=== PATIENT | female | born 1960 | race Caucasian/White ===

== ENCOUNTER → 2016-08-24 | Outpatient (CLI) | payer BC, OTHER ==
--- NOTE | 2016-08-24 15:45 | CR ---
EXAMINATION: Left knee HISTORY: Osteoarthritis COMPARISON: 09/12/2014 TECHNIQUE: 4 views FINDINGS/IMPRESSION: There is moderate severe joint space narrowing within the medial compartment wi th mild osteophyte formation. No fracture or acute osseous abnormality is noted. Bone mineralization appears normal, there is likely a trace joint effusion.
== END ==
LOC: MW.CHORTHO 10:53
PROVIDERS: ATTEND Orthopaedic Surgery
DX: M17.12 Unilateral primary osteoarthritis, left knee (principal); M25.862 Other specified joint disorders, left knee; M25.762 Osteophyte, left knee
CPT/HCPCS: 73564-26-LT; 73564-LT

== ENCOUNTER 2017-07-27 05:05 | Emergency (ER) | payer BC, OTHER ==
--- NOTE | 2017-07-27 05:52 | EDM.PDOC ---
ED HPI GENERAL MEDICAL PROBLEM - General Chief Complaint: Abdominal Pain Stated Complaint: BLOOD IN URINE Time Seen by Provider: 07/27/17 05:50 - History of Present Illness INITIAL COMMENTS - FREE TEXT/NARRATIVE: HISTORY AND PHYSICAL: History of present illness: Patient's a 56-year-old white female presents with concern of discomfort with urination and frequency she denies fever chills nausea vomiting or other complaints Review of systems: As per history of present illness and below otherwise all systems reviewed and negative. Past medical history: As per history of present illness and as reviewed below otherwise noncontributory. Surgical history: As per history of present illness and as reviewed below otherwise noncontributory. Social history: No reported history of drug or alcohol abuse. Family history: As per history of present illness and as reviewed below otherwise noncontributory. Physical exam: HEENT: Atraumatic, normocephalic, pupils reactive, negative for conjunctival pallor or scleral icterus, mucous membranes moist, throat clear, neck supple, nontender, trachea midline. Lungs: Clear to auscultation, breath sounds equal bilaterally, chest nontender. Heart: S1S2, regular, negative for clicks, rubs, or JVD. Abdomen: Soft, nondistended, nontender. Negative for masses or hepatosplenomegaly. Negative for costovertebral tenderness. Pelvis: Stable nontender. Genitourinary: Deferred. Rectal: Deferred. Extremities: Atraumatic, negative for cords or calf pain. Neurovascular unremarkable. Neuro: Awake, alert, oriented. Cranial nerves II through XII unremarkable. Cerebellum unremarkable. Motor and sensory unremarkable throughout. Exam nonfocal. Diagnostics: UA urine C&S Therapeutics: None Impression: 1 urinary tract infection Definitive disposition and diagnosis as appropriate pending reevaluation and review of above. abdominal Pain Score (Numeric/FACES): 2 - Related Data Allergies Allergy/AdvReac Type Severity Reaction Status Date / Time No Known Allergies Allergy Verified 07/27/17 05:20 Home Meds: Home Meds Albuterol [Proair HFA] 2 puff INH Q4HR PRN 09/23/13 [History] Ascorbate Calcium [Vitamin C] 1 tab PO DAILY 09/16/14 [History] MV,Ca,Min/Iron Fum/FA/Vit K [Multi For Her Tablet] 1 tab PO DAILY 09/16/14 [ History] Naproxen 1 tab PO BID 09/16/14 [History] [place]-3 Fatty Acids/Fish Oil [Fish Oil 1,200 mg Softgel] 1 cap PO DAILY [History] Amoxicillin/Potassium Clav [Augmentin 875-125 Tablet] 1 each PO BID #14 tablet 03/19/16 [Rx] Rizatriptan Benzoate [Maxalt] 5 mg PO ASDIRECTED PRN #10 tablet 03/19/16 [Rx] Past Medical History Respiratory History: Reports: Asthma Gastrointestinal History: Reports: None 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: Musculoskeletal History: Reports: None Neurological History: Reports: Migraines Psychiatric History: Reports: Depression - Infectious Disease History Infectious Disease History: Reports: Chicken Pox - Past Surgical History GI Surgical History: Reports: Appendectomy, Cholecystectomy, Other (See Below) Other GI Surgeries/Procedures: Abdominal surgery for "tumors in my abdomen", pt states tumor is benign Female Surgical History: Reports: Hysterectomy Musculoskeletal Surgical History: Reports: Other (See Below) Other Musculoskeletal Surgeries/Procedures:: surgery to right foot Social & Family History - Family History Family Medical History: Noncontributory - Tobacco Use Smoking Status *Q: Never Smoker Second Hand Smoke Exposure: No - Caffeine Use Caffeine Use: Reports: Coffee - Alcohol Use Days Per Week of Alcohol Use: 0 Number of Drinks Per Day: 0 Total Drinks Per Week: 0 - Recreational Drug Use Recreational Drug Use: No Drug Use in Last 12 Months: No ED ROS GENERAL - Review of Systems Review Of Systems: ROS reveals no pertinent complaints other than HPI. ED EXAM, GENERAL - Physical Exam Exam: See Below (See dictation) Course - Vital Signs Last Recorded V/S: Last Vital Signs Temp 36.6 C 07/27/17 05:15 Pulse 84 07/27/17 05:15 Resp 19 07/27/17 05:15 BP 138/69 07/27/17 05:15 Pulse Ox 96 07/27/17 05:15 - Orders/Labs/Meds Labs: Laboratory Tests 07/27/17 Range/Units 05:12 Urine Color YELLOW Urine Appearance SLT CLOUDY Urine pH 5.5 (5.0-8.0) Ur Specific [place] 1.010 (1.001-1.035) Urine Protein 30 (NEGATIVE) mg/dL Urine Glucose (UA) NEGATIVE (NEGATIVE) mg/dL Urine Ketones NEGATIVE (NEGATIVE) mg/dL Urine Occult Blood LARGE H (NEGATIVE) Urine Nitrite NEGATIVE (NEGATIVE) Urine Bilirubin NEGATIVE (NEGATIVE) Urine Urobilinogen 0.2 (<2.0) EU/dL Ur Leukocyte Esterase SMALL (NEGATIVE) Urine RBC TOO NUMBER (0-2/HPF) Urine WBC 20-30 (0-5/HPF) Ur Epithelial Cells FEW (NONE-FEW) Urine Bacteria FEW (NEGATIVE) Departure - Departure Time of Disposition: 05:51 Disposition: Home, Self-Care 01 Condition: Good Clinical Impression: UTI, Urinary tract infectious disease - Discharge Information Referrals: PCP,None [Primary Care Provider] - Additional Instructions: The following information is given to patients seen in the emergency department who are being discharged to home. This information is to outline your options for follow-up care. We provide all patients seen in our emergency department with a follow-up referral. The need for follow-up, as well as the timing and circumstances, are variable depending upon the specifics of your emergency department visit. If you don't have a primary care physician on staff, we will provide you with a referral. We always advise you to contact your personal physician following an emergency department visit to inform them of the circumstance of the visit and for follow-up with them and/or the need for any referrals to a consulting specialist. The emergency department will also refer you to a specialist when appropriate. This referral assures that you have the opportunity for followup care with a specialist. All of these measure are taken in an effort to provide you with optimal care, which includes your followup. Under all circumstances we always encourage you to contact your private physician who remains a resource for coordinating your care. When calling for followup care, please make the office aware that this follow-up is from your recent emergency room visit. If for any reason you are refused follow-up, please contact the [facility] emergency department at and asked to speak to the emergency department charge nurse. Cipro Pyridium as prescribed follow-up primary medical doctor as needed as discussed return as needed as discussed
[2017-07-27 06:09] VITALS: BP 121/76
== END 2017-07-27 06:00 | disposition home or self-care (01) ==
LOC: MW.ED 05:05
DX: N39.0 Urinary tract infection, site not specified (principal); Z79.899 Other long term (current) drug therapy
CPT/HCPCS: 81001; 87086; 99282; 99283

== ENCOUNTER 2018-12-12 02:45 | Emergency (ER) | payer BC, OTHER ==
[2018-12-12] MEDS ORDERED: diphenhydrAMINE 50 MG/ML SDV IVPUSH ONE (02:58)
[2018-12-12] MEDS ORDERED: methylPREDNISolone Sodium Succinate 125 MG/2 ML SDV IVPUSH ONE (02:58)
[2018-12-12 04:54] LABS: CHLORIDE,CL 105 mmol/L (98-107); SODIUM,NA 139 mmol/L (136-145)
--- NOTE | 2018-12-12 05:06 | EDM.PDOC ---
ED HPI GENERAL MEDICAL PROBLEM - General Chief Complaint: ENT Problem Stated Complaint: THROAT SWOLLEN Time Seen by Provider: 12/12/18 05:01 - History of Present Illness INITIAL COMMENTS - FREE TEXT/NARRATIVE: HISTORY AND PHYSICAL: History of present illness: Patient's 58-year-old white female who presents with a concern of sore throat difficulty swallowing she states she had similar episodes in the past that have resolved with Benadryl. She has seen doctors for this multiple times in his yet to obtain a clear diagnosis. Review of systems: As per history of present illness and below otherwise all systems reviewed and negative. Past medical history: As per history of present illness and as reviewed below otherwise noncontributory. Surgical history: As per history of present illness and as reviewed below otherwise noncontributory. Social history: No reported history of drug or alcohol abuse. Family history: As per history of present illness and as reviewed below otherwise noncontributory. Physical exam: HEENT: Atraumatic, normocephalic, pupils reactive, negative for conjunctival pallor or scleral icterus, mucous membranes moist, throat injected without pustular exudates no peritonsillar fullness or uvular deviation no trismus or hot potato voice, neck supple, nontender, trachea midline. Lungs: Clear to auscultation, breath sounds equal bilaterally, chest nontender. Heart: S1S2, regular, negative for clicks, rubs, or JVD. Abdomen: Soft, nondistended, nontender. Negative for masses or hepatosplenomegaly. Negative for costovertebral tenderness. Pelvis: Stable nontender. Genitourinary: Deferred. Rectal: Deferred. Extremities: Atraumatic, negative for cords or calf pain. Neurovascular unremarkable. Neuro: Awake, alert, oriented. Cranial nerves II through XII unremarkable. Cerebellum unremarkable. Motor and sensory unremarkable throughout. Exam nonfocal. Diagnostics: CBC CMP rapid strep. chest x-ray CT neck refused by patient Therapeutics: Saline 1 L bolus Solu-Medrol 125 IV Benadryl 50 mg IV Impression: #1 pharyngitis #2 odynophagia rule out angioedema Definitive disposition and diagnosis as appropriate pending reevaluation and review of above. throat Pain Score (Numeric/FACES): 5 - Related Data Allergies Allergy/AdvReac Type Severity Reaction Status Date / Time No Known Allergies Allergy Verified 12/12/18 02:59 Home Meds: Home Meds . 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: Musculoskeletal History: Reports: None Neurological History: Reports: Migraines Psychiatric History: Reports: Depression Endocrine/Metabolic History: Reports: None Hematologic History: Reports: None Immunologic History: Reports: None Oncologic (Cancer) History: Reports: None Dermatologic History: Reports: None - Infectious Disease History Infectious Disease History: Reports: None - Past Surgical History GI Surgical History: Reports: Appendectomy, Cholecystectomy, Other (See Below) Other GI Surgeries/Procedures: Abdominal surgery for "tumors in my abdomen", pt states tumor is benign Female Surgical History: Reports: Hysterectomy Musculoskeletal Surgical History: Reports: Other (See Below) Other Musculoskeletal Surgeries/Procedures:: surgery to right foot Social & Family History - Family History Family Medical History: Noncontributory - Tobacco Use Smoking Status *Q: Never Smoker - Caffeine Use Caffeine Use: Reports: Coffee - Recreational Drug Use Recreational Drug Use: No ED ROS GENERAL - Review of Systems Review Of Systems: ROS reveals no pertinent complaints other than HPI. ED EXAM, GENERAL - Physical Exam Exam: See Below (See dictation) Course - Vital Signs Text/Narrative:: Patient has been was discharged home admission for observation offered also discussed risk-benefit of CT scan of her neck and chest x-ray for further evaluation patient feels improved will be discharged on Medrol to be taken as prescribed continue Benadryl follow-up with her private medical doctor return as needed as discussed Last Recorded V/S: Last Vital Signs Temp 36.4 C 12/12/18 03:00 Pulse 98 12/12/18 03:00 Resp 18 12/12/18 03:00 BP 160/97 H 12/12/18 03:00 Pulse Ox 98 12/12/18 03:00 - Orders/Labs/Meds Orders: Active Orders 24 hr Category Date Time Status Soft Tissue Neck w Cont [CT] Stat Exams 12/12/18 02:57 Ordered Labs: Laboratory Tests 12/12/18 12/12/18 Range/Units 03:05 03:05 WBC 6.54 (4.0-11.0) K/uL RBC 4.72 (4.30-5.90) M/uL Hgb 13.5 (12.0-16.0) g/dL Hct 41.1 (36.0-46.0) % MCV 87.1 (80.0-98.0) fL MCH 28.6 (27.0-32.0) pg MCHC 32.8 (31.0-37.0) g/dL RDW Std Deviation 44.5 (28.0-62.0) fl RDW Coeff of Teja 14 (11.0-15.0) % Plt Count 280 (150-400) K/uL MPV 9.70 (7.40-12.00) fL Neut % (Auto) 52.2 (48.0-80.0) % Lymph % (Auto) 32.0 (16.0-40.0) % [place] % (Auto) 10.9 (0.0-15.0) % Eos % (Auto) 4.3 (0.0-7.0) % Baso % (Auto) 0.6 (0.0-1.5) % Neut # (Auto) 3.4 (1.4-5.7) K/uL Lymph # (Auto) 2.1 (0.6-2.4) K/uL [place] # (Auto) 0.7 (0.0-0.8) K/uL Eos # (Auto) 0.3 (0.0-0.7) K/uL Baso # (Auto) 0.0 (0.0-0.1) K/uL Nucleated RBC % 0.0 /100WBC Nucleated RBCs # 0 K/uL Sodium 139 (136-145) mmol/L Potassium 3.9 (3.5-5.1) mmol/L Chloride 105 (98-107) mmol/L Carbon Dioxide 25.6 (21.0-32.0) mmol/L BUN 18 (7.0-18.0) mg/dL Creatinine 0.8 (0.6-1.0) mg/dL Est Cr Clr Drug Dosing 56.40 mL/min Estimated GFR (MDRD) > 60.0 ml/min Glucose 103 (74-106) mg/dL Calcium 9.0 (8.5-10.1) mg/dL Total Bilirubin 0.2 (0.2-1.0) mg/dL AST 13 L (15-37) IU/L ALT 25 (14-63) IU/L Alkaline Phosphatase 84 (46-116) U/L Total Protein 7.5 (6.4-8.2) g/dL Albumin 3.6 (3.4-5.0) g/dL Globulin 3.9 (2.6-4.0) g/dL Albumin/Globulin Ratio 0.9 (0.9-1.6) Meds: Medications Discontinued Medications Generic Name Dose Route Start Last Admin Trade Name Magno PRN Reason Stop Dose Admin Diphenhydramine HCl 50 mg 12/12/18 02:58 12/12/18 03:17 Benadryl IVPUSH 12/12/18 02:59 50 mg ONETIME ONE Administration Methylprednisolone Sodium Succinate 125 mg 12/12/18 02:58 12/12/18 03:14 Solu-Medrol IVPUSH 12/12/18 02:59 125 mg ONETIME ONE Administration Departure - Departure Time of Disposition: 05:05 Disposition: Home, Self-Care 01 Condition: Good Clinical Impression: Pharyngitis, Odynophagia - Discharge Information Referrals: PCP,None [Primary Care Provider] - Additional Instructions: The following information is given to patients seen in the emergency department who are being discharged to home. This information is to outline your options for follow-up care. We provide all patients seen in our emergency department with a follow-up referral. The need for follow-up, as well as the timing and circumstances, are variable depending upon the specifics of your emergency department visit. If you don't have a primary care physician on staff, we will provide you with a referral. We always advise you to contact your personal physician following an emergency department visit to inform them of the circumstance of the visit and for follow-up with them and/or the need for any referrals to a consulting specialist. The emergency department will also refer you to a specialist when appropriate. This referral assures that you have the opportunity for followup care with a specialist. All of these measure are taken in an effort to provide you with optimal care, which includes your followup. Under all circumstances we always encourage you to contact your private physician who remains a resource for coordinating your care. When calling for followup care, please make the office aware that this follow-up is from your recent emergency room visit. If for any reason you are refused follow-up, please contact the [facility] emergency department at and asked to speak to the emergency department charge nurse. Clear liquids as discussed Medrol is prescribed Benadryl as directed and return as needed as discussed follow-up primary medical doctor NEVILLE - My Orders Last 24 Hours: My Active Orders 12/12/18 02:57 Soft Tissue Neck w Cont [CT] Stat - Assessment/Plan Last 24 Hours: My Active Orders 12/12/18 02:57 Soft Tissue Neck w Cont [CT] Stat
[2018-12-12 06:02] VITALS: BP 139/99
== END 2018-12-12 06:04 | disposition home or self-care (01) ==
LOC: MW.ED 02:45
DX: J02.9 Acute pharyngitis, unspecified (principal)
CPT/HCPCS: 36415; 80053; 85025; 87081; 87880; 96374; 96375; 99284; J1200; J2930

== ENCOUNTER 2020-01-21 06:22 | Inpatient (IN) | payer BC, OTHER ==
[~2020-01-21 06:22] MED LIST: Famotidine 20 MG/2 ML SDV IVPUSH SCH; Ropivacaine 49.25 ML, Ketorolac 30 MG, EPINEPHrine 0.5 MG, cloNIDine 80 MCG in Sodium C... INJECT SCH; Scopolamine 1.5 MG Transdermal Patch TRDERM SCH
[2020-01-21] MEDS ORDERED: Scopolamine 1.5 MG Transdermal Patch ONE (06:38)
[2020-01-21] MEDS ORDERED: Famotidine 20 MG/2 ML SDV ONE (06:42)
[2020-01-21] MEDS: Lactated Ringers 1,000 ML IV SCH ×2 (07:13→12:36)
[2020-01-21] MEDS ORDERED: Propofol 200 MG/20 ML SDV ONE ×7 (07:25→10:26)
[2020-01-21] MEDS ORDERED: Midazolam 1 MG/ML 2 ML SDV ONE (07:26)
--- NOTE | 2020-01-21 07:26 | PCM.PREANE ---
Preanesthetic Assessment - Anesthesia/Transfusion/Family Hx Anesthesia History: Prior Anesthesia Without Reaction Other Type of Anesthesia Reaction Comment: Denies any known problem in past Transfusion History: No Prior Transfusion(s) - Review of Systems General: No Symptoms Pulmonary: No Symptoms Cardiovascular: No Symptoms Gastrointestinal: No Symptoms Neurological: No Symptoms Other: Reports: None - Physical Assessment NPO Status Date: 01/20/20 Height: 5 ft 7 in Weight: 86.183 kg ASA Class: 2 Mental Status: Alert & Oriented x3 Airway Class: Mallampati = 2 Dentition: Reports: Normal Dentition ROM/Head Extension: Full Lungs: Clear to Auscultation, Normal Respiratory Effort Cardiovascular: Regular Rate, Regular Rhythm - Allergies Allergies/Adverse Reactions: Allergies Allergy/AdvReac Type Severity Reaction Status Date / Time milk Allergy Swollen Verified 01/17/20 11:43 Tongue pork derived (porcine) Allergy Swollen Verified 01/17/20 11:43 Tongue tree and shrub pollen Allergy Airway Verified 01/17/20 11:43 Tightness weed pollen Allergy Airway Verified 01/17/20 11:43 Tightness - Blood Blood Available: No - Anesthesia Plan Pre-Op Medication Ordered: None - Acknowledgements Anesthesia Type Planned: Spinal Pt an Appropriate Candidate for the Planned Anesthesia: Yes Alternatives and Risks of Anesthesia Discussed w Pt/Guardian: Yes Pt/Guardian Understands and Agrees with Anesthesia Plan: Yes Additional Comments: pmh: hx of migraines, multiple non medication allergies PLAN: spinal with sedation PreAnesthesia Questionnaire HEENT History: Reports: None Cardiovascular History: Reports: None Respiratory History: Reports: Asthma Gastrointestinal History: Reports: None 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: Musculoskeletal History: Reports: None Neurological History: Reports: Migraines Psychiatric History: Reports: Depression Endocrine/Metabolic History: Reports: None Hematologic History: Reports: None Immunologic History: Reports: None Oncologic (Cancer) History: Reports: None Other Oncologic History: frozen off face, chest and legs Dermatologic History: Reports: None - Infectious Disease History Infectious Disease History: Reports: None - Past Surgical History GI Surgical History: Reports: Appendectomy, Cholecystectomy, Other (See Below) Musculoskeletal Surgical History: Reports: Other (See Below) Other Musculoskeletal Surgeries/Procedures:: surgery to right foot - SUBSTANCE USE Smoking Status *Q: Never Smoker Recreational Drug Use History: No - HOME MEDS Home Medications: Home Meds Aspirin/Acetaminophen/Caffeine [Excedrin Migraine Caplet] 1 tab PO ASDIRECTED PRN 01/17/20 [History] Ibuprofen 200 mg PO ASDIRECTED PRN 01/17/20 [History] diphenhydrAMINE [Benadryl] 25 mg PO TID PRN 01/17/20 [History] - CURRENT (IN HOUSE) MEDS Current Meds: Current Medications Tranexamic Acid 1,000 mg/ (Sodium Chloride) 110 mls @ 600 mls/hr IV ASDIRECTED ONE Stop: 01/21/20 08:10 Ropivacaine 49.25 ml/Ketorolac Tromethamine 30 mg/Epinephrine HCl 0.5 mg/Clonidine HCl 80 mcg/ Sodium Chloride 75 mls @ 50 mls/sec INJECT ASDIRECTED ALONSO Cefazolin Sodium/Dextrose 2 gm (/ Premix) 50 mls @ 100 mls/hr IV ONCALL ALONSO Lactated Ringer's (Ringers, Lactated) 1,000 mls @ 100 mls/hr IV ASDIRECTED ALONSO Last Admin: 01/21/20 07:13 Dose: 100 mls/hr Documented by: Scopolamine (Transderm-Scop) 1.5 mg TRDER ONARRIVE [facility] Last Admin: 01/21/20 07:11 Dose: 1.5 mg Documented by: Discontinued Medications Famotidine (Pepcid) Confirm Administered Dose 20 mg .ROUTE .STK-MED ONE Stop: 01/21/20 06:43 Famotidine 20 mg/ Sodium (Chloride) 10 mls @ 300 mls/hr IV ONARRIVE ONE Stop: 01/21/20 06:01 Scopolamine (Transderm-Scop) Confirm Administered Dose 1.5 mg .ROUTE .STK-MED ONE Stop: 01/21/20 06:39
[2020-01-21] MEDS ORDERED: ceFAZolin 2 GM in Premix Bag 1 BAG IV SCH (08:00)
[2020-01-21] MEDS ORDERED: Tranexamic Acid 1,000 MG in Sodium Chloride 0.9% 100 ML IV ONE (08:00)
[2020-01-21] MEDS ORDERED: ceFAZolin 1 GM Vial ONE (08:16)
[2020-01-21] MEDS ORDERED: Sodium Chloride 0.9% 20 ML ONE (08:16)
[2020-01-21] MEDS ORDERED: Dexamethasone 4 MG/ML 5 ML MDV ONE (09:54)
[2020-01-21] MEDS ORDERED: Bupivacaine 0.25% 10 ML SDV ONE (09:58)
--- NOTE | 2020-01-21 11:03 | PCM.OPNOTE ---
- General Post-Op/Procedure Note Date of Surgery/Procedure: 01/21/20 Operative Procedure(s): Left total knee replacement Findings: Left knee grade 4 medial compartment arthritis with grade 4 changes of the medial femoral condyle and medial tibial plateau with large marginal osteophytes Lateral compartment grade 1 changes Patellofemoral joint central grade 1 changes with small marginal osteophytes Pre Op Diagnosis: Left knee grade 4 medial compartment primary osteoarthritis Post-Op Diagnosis: Left knee grade 4 medial compartment primary osteoarthritis Anesthesia Technique: Spinal Other Anesthesia Type: Adductor canal block Primary Surgeon: Kingsley Bailey Secondary Surgeon: Jaja aLla Reason Advance Scout Was Necessary: Positioning and retraction EBL in mLs: 10 Complications: None Free Text/Narrative:: Patient has left knee grade 4 medial compartment primary osteoarthritis. She has failed nonoperative management. We discussed the risks and benefits of surgery and the patient elected to proceed with surgery. She completed pre operative optimization. Patient consented to proceed with surgery. Patient was taken to the operating room. Tourniquet was placed around the left proximal thigh. The left lower extremity was prepped and draped in the usual sterile manner. The leg elevated the tourniquet inflated. A midline incision was used with a scalpel. Subcutaneous tissue were incised electrocautery. Medial parapatellar arthrotomy was performed. Soft tissues were excised and the patella was everted. The distal femoral cut was made with a intramedullary cutting guide at 5 degrees. The femur was then sized to #5. The 4-in-1 cutting block was used for the distal femoral cuts. Trial component fit well and the lug holes were punched. Posterior osteophytes were removed with a curved osteotome. Tibia was cut with an intramedullary cutting guide. The tibia was sized to a #5. The keel was punched. Trial reduction with components and a 9 mm polyethylene showed excellent range of motion and good stability throughout the range of motion. The patella tracked well. Because of minimal degenerative changes of the patella, marginal osteophytes were removed but the patella did not require resurfacing. Trial components were removed. [employer] implants were used. A #5 tibial component was cemented with antibiotic cement and excess cement removed. A 9 mm highly cross-linked polyethylene component was then inserted. A #5 Oxinium cruciate retaining femoral component was cemented in place. Excess cement was removed. The knee was put through a range of motion to extrude any additional cement. Excess cement removed. The knee pulse lavaged and brought into extension until the cement hardened. The arthrotomy was repaired with interrupted and running #1 Vicryl sutures. Subcutaneous tissue was closed with interrupted 2-0 Vicryl sutures. Skin was closed with a running strata fix 3-0 Monocryl. A WILMA dressing was applied. Leg was then placed in an Stewart wrap and patient received an adductor canal block prior to leaving the operating room. She was accompanied to the recovery room in stable condition. Pain management: Toradol, ibuprofen, acetaminophen, and oxycodone. Prophylactic antibiotics: Ancef x2 doses Venous thromboembolism prophylaxis: Aspirin enteric-coated 325 mg daily for 90 days. Restrictions: Patient is weightbearing as tolerated on her left lower extremity with assistive device as needed, full range of motion, no restrictions.
[2020-01-21] MEDS ORDERED: Aluminum Hydroxide/Magnesium Hydroxide/Simethicone Susp 30 ML Cup PO PRN (11:04)
[2020-01-21] MEDS ORDERED: Ondansetron 4 MG/2 ML SDV IVPUSH PRN (11:04)
[2020-01-21] MEDS ORDERED: diphenhydrAMINE 25 MG Cap PO PRN (11:04)
[2020-01-21] MEDS ORDERED: Sodium Chloride 0.9% 10 ML Syringe FLUSH PRN (11:04)
[2020-01-21] MEDS ORDERED: Bisacodyl 10 MG Supp RECTAL PRN (11:04)
[2020-01-21] MEDS ORDERED: Sodium Chloride 0.9% 2.5 ML Syringe FLUSH PRN (11:04)
[2020-01-21] MEDS ORDERED: Docusate Sodium 100 MG Cap PO PRN (11:04)
[2020-01-21] MEDS ORDERED: Ketorolac 30 MG/ML SDV ONE (11:16)
[2020-01-21] MEDS: Ketorolac 30 MG/ML SDV IVPUSH SCH ×3 (11:20→23:21)
--- NOTE | 2020-01-21 13:09 | CR ---
Left knee: AP and lateral views of the left knee were obtained. Comparison: Prior left knee study of 08/24/16. Knee prosthesis is seen. Components are aligned. Underlying bony structures are intact. Soft tissue air is noted from surgical procedure. Impression: 1. Satisfactory postop radiographic appearance of recently placed left knee prosthesis. Diagnostic code #2 This report was dictated in MDT
[2020-01-21] MEDS ORDERED: Acetaminophen 325 MG Tab PO PRN (15:00)
[2020-01-21] MEDS: ceFAZolin 2 GM in Premix Bag 1 BAG IV SCH ×2 (15:25→23:22)
[2020-01-21] MEDS: Aspirin 325 MG Tab PO SCH (16:19)
[2020-01-21] MEDS: oxyCODONE 5 MG Tab PO PRN (21:26)
[2020-01-22 04:09] VITALS: BP 111/68; PULSE 58
[2020-01-22] MEDS: oxyCODONE 5 MG Tab PO PRN (05:18)
--- NOTE | 2020-01-22 08:22 | PCM48HPAN ---
Post Anesthesia Note - EVALUATION WITHIN 48HRS OF ANESTHETIC Vital Signs in Normal Range: Yes Patient Participated in Evaluation: Yes Respiratory Function Stable: Yes Airway Patent: Yes Cardiovascular Function Stable: Yes Hydration Status Stable: Yes Pain Control Satisfactory: Yes Nausea and Vomiting Control Satisfactory: Yes Mental Status Recovered: Yes Vital Signs: Last Vital Signs Temp 36.4 C 01/22/20 04:00 Pulse 58 L 01/22/20 04:00 Resp 16 01/22/20 04:00 BP 111/68 01/22/20 04:00 Pulse Ox 95 01/22/20 04:00 - COMMENTS/OBSERVATIONS Free Text/Narrative:: [place] doing [place], no complaints
--- NOTE | 2020-01-22 08:24 | PCM.POSTAN ---
POST ANESTHESIA ASSESSMENT - MENTAL STATUS Mental Status: Alert, Oriented - VITAL SIGNS Vital Signs: Last Vital Signs Temp 36.4 C 01/22/20 04:00 Pulse 58 L 01/22/20 04:00 Resp 16 01/22/20 04:00 BP 111/68 01/22/20 04:00 Pulse Ox 95 01/22/20 04:00 - RESPIRATORY Respiratory Status: Respiratory Rate WNL, Airway Patent, O2 Saturation Stable - CARDIOVASCULAR CV Status: Pulse Rate WNL, Blood Pressure Stable - GASTROINTESTINAL GI Status: No Symptoms - PAIN Pain Score: 0 - POST OP HYDRATION Hydration Status: Adequate & Stable
[2020-01-22] MEDS ORDERED: Polyethylene Glycol 3350 Powder 17 GM Packet PO SCH (09:00)
[2020-01-22] MEDS ORDERED: Ibuprofen 800 MG Tab PO PRN (09:00)
[2020-01-22] MEDS ORDERED: Famotidine 20 MG Tab PO SCH (09:00)
[2020-01-22] MEDS: Aspirin 325 MG Tab PO SCH (09:42)
--- NOTE | 2020-01-22 13:10 | PCM.SURGPN ---
- General Info Date of Service: 01/22/20 (0800) Date of Surgery/Procedure: 01/21/20 (S/P LEFT TKA) POD#: 1 Post-Op Diagnosis: LEFT KNEE OSTEOARTHRITIS Admission Diagnosis/Problem: Knee pain Functional Status: Reports: Pain Controlled, Tolerating Diet (no N/V. Ate supper and currently eating breakfast), Ambulating (ambulated yesterday afternoon in the hallway and is ready to get OOB this morning and walk), Urinating. Denies: New Symptoms - Review of Systems General: Reports: No Symptoms. Denies: Fever HEENT: Reports: No Symptoms Pulmonary: Denies: Shortness of Breath Cardiovascular: Reports: No Symptoms Gastrointestinal: Reports: No Symptoms. Denies: Nausea, Vomiting Genitourinary: Reports: No Symptoms Musculoskeletal: Reports: Joint Pain (minimal ) Neurological: Reports: No Symptoms Psychiatric: Reports: No Symptoms - Patient Data Vitals - Most Recent: Last Vital Signs Temp 36.4 C 01/22/20 04:00 Pulse 58 L 01/22/20 04:00 Resp 16 01/22/20 04:00 BP 111/68 01/22/20 04:00 Pulse Ox 95 01/22/20 04:00 Weight - Most Recent: 86.183 kg I&O - Last 24 Hours: Intake & Output 01/21/20 01/22/20 01/22/20 22:59 06:59 14:59 Intake Total 1465 1325 Output Total 900 3050 Balance 565 -1725 Lab Results Last 24 Hrs: Laboratory Results - last 24 hr 01/22/20 Range/Units 05:35 Hgb 11.3 L (12.0-16.0) g/dL Hct 34.7 L (36.0-46.0) % Med Orders - Current: Current Medications Discontinued Medications Acetaminophen (Tylenol) 650 mg PO Q6H PRN PRN Reason: Pain Al Hydroxide/Mg Hydroxide (Mag-Al Plus) 30 ml PO Q4H PRN PRN Reason: Indigestion Aspirin (Aspirin) 325 mg PO DAILY ALONSO Last Admin: 01/22/20 09:42 Dose: 325 mg Documented by: Bisacodyl (Dulcolax) 10 mg RECTAL DAILY PRN PRN Reason: Constipation Bupivacaine HCl (Sensorcaine-Mpf 0.25%) Confirm Administered Dose 20 ml .ROUTE .STK-MED ONE Stop: 01/21/20 09:59 Cefazolin Sodium (Ancef) Confirm Administered Dose 2 gm .ROUTE .[facility] ONE Stop: 01/21/20 08:17 Dexamethasone (Dexamethasone) Confirm Administered Dose 20 mg .ROUTE .[facility] ONE Stop: 01/21/20 09:55 Diphenhydramine HCl (Benadryl) 25 - 50 mg PO Q6H PRN PRN Reason: Itching Docusate Sodium (Colace) 100 mg PO BID PRN PRN Reason: Constipation Famotidine (Pepcid) Confirm Administered Dose 20 mg .ROUTE .[facility] ONE Stop: 01/21/20 06:43 Last Admin: 01/21/20 06:42 Dose: 20 mg Documented by: Famotidine (Pepcid) 40 mg PO DAILY [facility] Last Admin: 01/22/20 09:42 Dose: 40 mg Documented by: Tranexamic Acid 1,000 mg/ (Sodium Chloride) 110 mls @ 600 mls/hr IV ASDIRECTED ONE Stop: 01/21/20 08:10 Last Admin: 01/21/20 12:56 Dose: Not Given Documented by: Ropivacaine 49.25 ml/Ketorolac Tromethamine 30 mg/Epinephrine HCl 0.5 mg/Clonidine HCl 80 mcg/ Sodium Chloride 75 mls @ 50 mls/sec INJECT ASDIRECTED [facility] Cefazolin Sodium/Dextrose 2 gm (/ Premix) 50 mls @ 100 mls/hr IV ONCALL [facility] Lactated Ringer's (Ringers, Lactated) 1,000 mls @ 100 mls/hr IV ASDIRECTED [facility] Last Admin: 01/21/20 12:36 Dose: 100 mls/hr Documented by: Famotidine 20 mg/ Sodium (Chloride) 10 mls @ 300 mls/hr IV ONARRIVE ONE Stop: 01/21/20 06:01 Last Admin: 01/21/20 12:55 Dose: Not Given Documented by: Sodium Chloride (Normal Saline) Confirm Administered Dose 20 mls @ as directed .ROUTE .STK-MED ONE Stop: 01/21/20 08:17 Cefazolin Sodium/Dextrose 2 gm (/ Premix) 50 mls @ 100 mls/hr IV Q8H [facility] Stop: 01/22/20 00:29 Last Admin: 01/21/20 23:22 Dose: 100 mls/hr Documented by: Ibuprofen (Motrin) 800 mg PO Q6H PRN PRN Reason: Pain Ketorolac Tromethamine (Toradol) Confirm Administered Dose 30 mg .ROUTE .STK-MED ONE Stop: 01/21/20 11:17 Last Admin: 01/21/20 12:56 Dose: Not Given Documented by: Ketorolac Tromethamine (Toradol) 30 mg IVPUSH Q6H [facility] Stop: 01/22/20 05:00 Last Admin: 01/21/20 23:21 Dose: 30 mg Documented by: Midazolam HCl (Versed 1 Mg/Ml) Confirm Administered Dose 2 mg .ROUTE .STK-MED ONE Stop: 01/21/20 07:27 Ondansetron HCl (Zofran) 4 mg IVPUSH Q6H PRN PRN Reason: Nausea/Vomiting Oxycodone HCl (Oxycodone) 5 - 10 mg PO Q4H PRN PRN Reason: Pain Last Admin: 01/22/20 05:18 Dose: 5 mg Documented by: Polyethylene Glycol (Miralax) 17 gm PO DAILY [facility] Last Admin: 01/22/20 09:42 Dose: 17 gm Documented by: Propofol (Diprivan 20 Ml) Confirm Administered Dose 400 mg .ROUTE .STK-MED ONE Stop: 01/21/20 07:26 Propofol (Diprivan 20 Ml) Confirm Administered Dose 400 mg .ROUTE .STK-MED ONE Stop: 01/21/20 08:36 Propofol (Diprivan 20 Ml) Confirm Administered Dose 200 mg .ROUTE .STK-MED ONE Stop: 01/21/20 08:44 Propofol (Diprivan 20 Ml) Confirm Administered Dose 200 mg .ROUTE .STK-MED ONE Stop: 01/21/20 09:33 Propofol (Diprivan 20 Ml) Confirm Administered Dose 200 mg .ROUTE .STK-MED ONE Stop: 01/21/20 09:54 Propofol (Diprivan 20 Ml) Confirm Administered Dose 200 mg .ROUTE .STK-MED ONE Stop: 01/21/20 10:07 Propofol (Diprivan 20 Ml) Confirm Administered Dose 200 mg .ROUTE .STK-MED ONE Stop: 01/21/20 10:27 Scopolamine (Transderm-Scop) 1.5 mg TRDERM ONARRIVE [facility] Last Admin: 01/21/20 07:11 Dose: 1.5 mg Documented by: Scopolamine (Transderm-Scop) Confirm Administered Dose 1.5 mg .ROUTE .STK-MED ONE Stop: 01/21/20 06:39 Last Admin: 01/21/20 12:55 Dose: Not Given Documented by: Sodium Chloride (Saline Flush) 10 ml FLUSH ASDIRECTED PRN PRN Reason: Keep Vein Open Sodium Chloride (Saline Flush) 2.5 ml FLUSH ASDIRECTED PRN PRN Reason: Keep Vein Open Tranexamic Acid (Cyklokapron) Confirm Administered Dose 2,000 mg .ROUTE .STK-MED ONE Stop: 01/21/20 07:29 - Exam Wound/Incisions: Drainage. No: Erythema Quality Assessment: DVT Prophylaxis (ASA, ambulation, SCDs and compression stocking) General: Alert, Oriented, Cooperative, No Acute Distress HEENT: Pupils Equal Lungs: Normal Respiratory Effort Cardiovascular: Regular Rate (PP2+) Extremities: No Pedal Edema, Normal Capillary Refill, Other (No calf pain, swelling or erythema. Actively moving ankle. Sensation to foot/ankle fully intact. PP2+) Skin: Warm, Dry Neurological: Normal Speech, Normal Tone (No calf swelling or erythema. ) Psy/Mental Status: Alert, Normal Affect, Normal Mood Physical Findings Comment:: WILMA dressing saturated with bloody drainage, but still activated/compressed. Sepsis Event Note - Evaluation Sepsis Screening Result: No Definite Risk - Focused Exam Vital Signs: Vital Signs Temp Pulse Resp BP Pulse Ox 01/22/20 04:00 36.4 C 58 L 16 111/68 95 - Problem List Review Problem List Initiated/Reviewed/Updated: Yes - My Orders Last 24 Hours: Active Orders 24 hr Category Date Time Status Convert IV to Saline Lock [OM.PC] PRN Oth 01/22/20 11:15 Ordered - Assessment Assessment (Free Text/Narrative):: s/p LEFT TKA - Plan Plan (Free Text/Narrative):: Christy is doing well, feels ready to go home today. VSS/afebrile. Hg stable at 11.3. Tolerating po food/fluids without N/V. Pain manageable. Took Delta last night and early this morning, reporting effective relief and tolerating narcotic. Diligent use of ice per [facility] ice machine. 2 additional doses of IV Ancef completed for prophylactic treatment. DVT prophylaxis : ASA, ambulation, SCDs and compression stockings. As WILMA dressing was saturated, this was removed. Incision well approximated, with no surrounding erythema. Minimal drainage. New WILMA dressing was applied. She will be sent home with an AquaCell bandage to apply in the event of oversaturation of the WILMA dressing or WILMA machine ceases to work. Discharge paperwork completed. Rx written for FWW. Therapy appt scheduled. Christy had no additional questions.
--- NOTE | 2020-01-23 13:15 | PCM.DCSUM1 ---
Discharge Summary - Hospital Course Free Text/Narrative:: document #[id number] - Discharge Data Discharge Date: 01/22/20 Discharge Disposition: Home, Self-Care 01 Condition: Good - Referral to Home Health Primary Care Physician: Yazmin Arias DO - Patient Summary/Data Operative Procedure(s) Performed: Left total knee replacement Consults: Consultations 01/21/20 11:05 PT Evaluation and Treatment [CONS] Routine - Patient Instructions Diet: Usual Diet as Tolerated Activity: Apply Ice, Cough & Deep Breathe, Elevate Extremity, Full Weight Bearing, No Strenuous Activities Driving: Do Not Drive Showering/Bathing: No Tub Bathing/Swimming Showering/Bathing, Other: When bathing, utilize a shower chair to avoid getting WILMA dressing wet. Wound/Incision Care: Do NOT Change Dressing Notify Provider of: Fever, Increased Pain, Swelling and Redness, Drainage Other/Special Instructions: Refer to 'Post-operative patient instructions for TOTAL KNEE ARTHROPLASTY' handout - Discharge Plan *PRESCRIPTION DRUG MONITORING PROGRAM REVIEWED*: Yes *COPY OF PRESCRIPTION DRUG MONITORING REPORT IN PATIENT KAROL: Not Applicable Prescriptions/Med Rec: Ibuprofen [Motrin] 800 mg PO Q6H PRN #100 tablet PRN Reason: Pain oxyCODONE 5 - 10 mg PO Q4H PRN #20 tablet PRN Reason: Pain Acetaminophen [Tylenol] 650 mg PO Q6H PRN #100 tablet PRN Reason: Pain Home Medications: Home Meds Aspirin/Acetaminophen/Caffeine [Excedrin Migraine Caplet] 1 tab PO ASDIRECTED PRN 01/17/20 [History] diphenhydrAMINE [Benadryl] 25 mg PO ASDIRECTED PRN 01/17/20 [History] Acetaminophen [Tylenol] 650 mg PO Q6H PRN #100 tablet 01/22/20 [Rx] Aspirin 325 mg PO DAILY tablet 01/22/20 [Rx] Docusate Sodium [Colace] 100 mg PO BID PRN cap 01/22/20 [Rx] Ibuprofen [Motrin] 800 mg PO Q6H PRN #100 tablet 01/22/20 [Rx] oxyCODONE 5 - 10 mg PO Q4H PRN #20 tablet 01/22/20 [Rx] polyethylene glycoL 3350 [MiraLAX] 17 gm PO DAILY packet 01/22/20 [Rx] Patient Handouts: Oxycodone tablets or capsules, Ibuprofen tablets and capsules, Total Knee Replacement, Care After, [id number], Acetaminophen tablets or caplets Referrals: Jaja Lala NP [Nurse Practitioner] - 02/05/20 10:00 am (Dressing change with Jaja Lala NP 01/31/20 at 11:20 am. Please arrive 15 minutes early with your identification, insurance cards and your own facemask.) - Discharge Summary/Plan Comment DC Time >30 min.: Yes - Patient Data Vitals - Most Recent: Last Vital Signs Temp 36.4 C 01/22/20 04:00 Pulse 58 L 01/22/20 04:00 Resp 16 01/22/20 04:00 BP 111/68 01/22/20 04:00 Pulse Ox 95 01/22/20 04:00 Weight - Most Recent: 86.183 kg Med Orders - Current: Current Medications Discontinued Medications Acetaminophen (Tylenol) 650 mg PO Q6H PRN PRN Reason: Pain Al Hydroxide/Mg Hydroxide (Mag-Al Plus) 30 ml PO Q4H PRN PRN Reason: Indigestion Aspirin (Aspirin) 325 mg PO DAILY [facility] Last Admin: 01/22/20 09:42 Dose: 325 mg Documented by: Bisacodyl (Dulcolax) 10 mg RECTAL DAILY PRN PRN Reason: Constipation Bupivacaine HCl (Sensorcaine-Mpf 0.25%) Confirm Administered Dose 20 ml .ROUTE .STK-MED ONE Stop: 01/21/20 09:59 Cefazolin Sodium (Ancef) Confirm Administered Dose 2 gm .ROUTE .STK-MED ONE Stop: 01/21/20 08:17 Dexamethasone (Dexamethasone) Confirm Administered Dose 20 mg .ROUTE .STK-MED ONE Stop: 01/21/20 09:55 Diphenhydramine HCl (Benadryl) 25 - 50 mg PO Q6H PRN PRN Reason: Itching Docusate Sodium (Colace) 100 mg PO BID PRN PRN Reason: Constipation Famotidine (Pepcid) Confirm Administered Dose 20 mg .ROUTE .STK-MED ONE Stop: 01/21/20 06:43 Last Admin: 01/21/20 06:42 Dose: 20 mg Documented by: Famotidine (Pepcid) 40 mg PO DAILY [facility] Last Admin: 01/22/20 09:42 Dose: 40 mg Documented by: Tranexamic Acid 1,000 mg/ (Sodium Chloride) 110 mls @ 600 mls/hr IV ASDIRECTED ONE Stop: 01/21/20 08:10 Last Admin: 01/21/20 12:56 Dose: Not Given Documented by: Ropivacaine 49.25 ml/Ketorolac Tromethamine 30 mg/Epinephrine HCl 0.5 mg/Clonidine HCl 80 mcg/ Sodium Chloride 75 mls @ 50 mls/sec INJECT ASDIRECTED [facility] Cefazolin Sodium/Dextrose 2 gm (/ Premix) 50 mls @ 100 mls/hr IV ONCALL [facility] Lactated Ringer's (Ringers, Lactated) 1,000 mls @ 100 mls/hr IV ASDIRECTED [facility] Last Admin: 01/21/20 12:36 Dose: 100 mls/hr Documented by: Famotidine 20 mg/ Sodium (Chloride) 10 mls @ 300 mls/hr IV ONARRIVE ONE Stop: 01/21/20 06:01 Last Admin: 01/21/20 12:55 Dose: Not Given Documented by: Sodium Chloride (Normal Saline) Confirm Administered Dose 20 mls @ as directed .ROUTE .STK-MED ONE Stop: 01/21/20 08:17 Cefazolin Sodium/Dextrose 2 gm (/ Premix) 50 mls @ 100 mls/hr IV Q8H [facility] Stop: 01/22/20 00:29 Last Admin: 01/21/20 23:22 Dose: 100 mls/hr Documented by: Ibuprofen (Motrin) 800 mg PO Q6H PRN PRN Reason: Pain Ketorolac Tromethamine (Toradol) Confirm Administered Dose 30 mg .ROUTE .STK-MED ONE Stop: 01/21/20 11:17 Last Admin: 01/21/20 12:56 Dose: Not Given Documented by: Ketorolac Tromethamine (Toradol) 30 mg IVPUSH Q6H [facility] Stop: 01/22/20 05:00 Last Admin: 01/21/20 23:21 Dose: 30 mg Documented by: Midazolam HCl (Versed 1 Mg/Ml) Confirm Administered Dose 2 mg .ROUTE .STK-MED ONE Stop: 01/21/20 07:27 Ondansetron HCl (Zofran) 4 mg IVPUSH Q6H PRN PRN Reason: Nausea/Vomiting Oxycodone HCl (Oxycodone) 5 - 10 mg PO Q4H PRN PRN Reason: Pain Last Admin: 01/22/20 05:18 Dose: 5 mg Documented by: Polyethylene Glycol (Miralax) 17 gm PO DAILY [facility]ONSO Last Admin: 01/22/20 09:42 Dose: 17 gm Documented by: Propofol (Diprivan 20 Ml) Confirm Administered Dose 400 mg .ROUTE .STK-MED ONE Stop: 01/21/20 07:26 Propofol (Diprivan 20 Ml) Confirm Administered Dose 400 mg .ROUTE .STK-MED ONE Stop: 01/21/20 08:36 Propofol (Diprivan 20 Ml) Confirm Administered Dose 200 mg .ROUTE .STK-MED ONE Stop: 01/21/20 08:44 Propofol (Diprivan 20 Ml) Confirm Administered Dose 200 mg .ROUTE .STK-MED ONE Stop: 01/21/20 09:33 Propofol (Diprivan 20 Ml) Confirm Administered Dose 200 mg .ROUTE .STK-MED ONE Stop: 01/21/20 09:54 Propofol (Diprivan 20 Ml) Confirm Administered Dose 200 mg .ROUTE .STK-MED ONE Stop: 01/21/20 10:07 Propofol (Diprivan 20 Ml) Confirm Administered Dose 200 mg .ROUTE .STK-MED ONE Stop: 01/21/20 10:27 Scopolamine (Transderm-Scop) 1.5 mg TRDERM ONARRIVE [facility] Last Admin: 01/21/20 07:11 Dose: 1.5 mg Documented by: Scopolamine (Transderm-Scop) Confirm Administered Dose 1.5 mg .ROUTE .STK-MED ONE Stop: 01/21/20 06:39 Last Admin: 01/21/20 12:55 Dose: Not Given Documented by: Sodium Chloride (Saline Flush) 10 ml FLUSH ASDIRECTED PRN PRN Reason: Keep Vein Open Sodium Chloride (Saline Flush) 2.5 ml FLUSH ASDIRECTED PRN PRN Reason: Keep Vein Open Tranexamic Acid (Cyklokapron) Confirm Administered Dose 2,000 mg .ROUTE .STK-MED ONE Stop: 01/21/20 07:29
--- NOTE | 2020-01-24 12:23 | DISCH ---
DATE OF DISCHARGE: 01/22/2020 PRIMARY CARE PHYSICIAN: Yazmin Arias DO ATTENDING SURGEON: Dr. Kingsley Bailey. ADMITTING DIAGNOSIS: Left knee grade 4 medial compartment primary osteoarthritis. OTHER MEDICAL DIAGNOSIS: Status post left total knee arthroplasty. HISTORY: This 59-year-old female with history of left knee osteoarthritis, who failed conservative management, underwent left total knee arthroplasty on January 21, 2020, by Dr. Kingsley Bailey. No known surgical complications. She was admitted to Med/Surg for postop care and physical therapy. HOSPITAL COURSE: Postoperatively, Christy did exceptionally well. She received an adductor canal block for pain management by Anesthesia. Vital signs stable/afebrile. No acute nausea or vomiting. Tolerating food/fluids by suppertime. Diligent use of Polar ice therapy. Antibiotic coverage: Ancef 2 g every 8 hours for 24 hours. DVT prophylaxis: ASA starting day of surgery, ambulation, compression stockings, and SCDs bilaterally. Blood work: Hemoglobin POD#1 stable at 11.3. Incision: A WILMA negative pressure dressing was applied after surgery. Dressing was saturated the following morning and new WILMA dressing was applied by myself with adequate activation. PT was initiated in the hospital. She was ambulating well day of surgery down the hallway with staff and walker. Christy felt ready to be discharged home. DISCHARGE MEDICATIONS: 1. Aspirin 325 mg 1 tablet daily x3 months. 2. Acetaminophen 650 mg every 6 hours p.r.n. 3. Ibuprofen 800 mg every 6 hours. 4. Oxycodone 5 mg 1 to 2 tablets every 4 hours p.r.n. 5. Colace 100 mg b.i.d. p.r.n. 6. MiraLAX 17 g daily p.r.n. DISCHARGE ORDERS: Followup appointment scheduled in 1 week for application of new WILMA negative pressure dressing. She was educated postop day 1 on use of WILMA device. If the WILMA is saturated and not activating over the weekend, she is to remove and apply Aquacel dressing. [facility] Prescription written for walker and cane for home use. Discussed pain management with routine NSAID and supplemental need for either [place] or Tylenol based on her level of pain. Discharged home with her . NORBCHE / MODL /[id number] SP
== END 2020-01-22 11:35 | disposition home or self-care (01) | DRG 302 ==
LOC: MW.MS 06:22
PROVIDERS: ADMIT Orthopaedic Surgery; ATTEND Orthopaedic Surgery
PROC: 0SRD0J9 Replacement of Left Knee Joint with Synthetic Substitute, Cemented, Open Approach (ICD-10-PCS; principal; 2020-01-21)
DX: M17.12 Unilateral primary osteoarthritis, left knee (principal); G43.909 Migraine, unspecified, not intractable, without status migrainosus; Z79.82 Long term (current) use of aspirin; Z79.899 Other long term (current) drug therapy; Z88.8 Allergy status to other drugs, medicaments and biological substances; Z90.49 Acquired absence of other specified parts of digestive tract; Z90.710 Acquired absence of both cervix and uterus; Z91.81 History of falling; Z85.828 Personal history of other malignant neoplasm of skin
CPT/HCPCS: 01402; 36415; 73560-26-LT; 73560-LT; 85014; 85018; 86850; 86900; 86901; 97110-GP; 97116-GP; 97161-GP; A9270-GY; J0690; J1100; J1885; J2250; J2704; J3490; J7050; J7120

== ENCOUNTER 2020-01-27 13:02 | Emergency (ER) | payer BC, OTHER ==
[2020-01-27] MEDS ORDERED: Sodium Chloride 0.9% 10 ML SDV IV PRN (13:06)
[2020-01-27] MEDS ORDERED: Sodium Chloride 0.9% 2.5 ML Syringe FLUSH PRN (13:06)
[2020-01-27] MEDS ORDERED: Sodium Chloride 0.9% 10 ML Syringe FLUSH PRN (13:06)
[2020-01-27] MEDS ORDERED: valACYclovir 500 MG Tab PO ONE (13:08)
[2020-01-27] MEDS ORDERED: methylPREDNISolone Sodium Succinate 125 MG/2 ML SDV IVPUSH ONE (13:08)
[2020-01-27 13:50] VITALS: BP 176/98; PULSE 78
[2020-01-27] MEDS ORDERED: Acetaminophen/HYDROcodone 325-7.5 MG Tab PO STA (14:02)
[2020-01-27 14:49] LABS: BLOOD UREA NITROGEN,BUN 12 mg/dL (7.0-18.0); CARBON DIOXIDE,CO2 27.8 mmol/L (21.0-32.0); CHLORIDE,CL 103 mmol/L (98-107); GLUCOSE RANDOM 101 mg/dL (74-106); POTASSIUM,K 4.2 mmol/L (3.5-5.1); SODIUM,NA 139 mmol/L (136-145)
--- NOTE | 2020-01-27 14:58 | CR ---
Left knee: AP, lateral and sunrise patellar views left knee were obtained. Comparison: Prior left knee exam of 01/21/20. Knee prosthesis is seen. Components are aligned. Previous soft tissue air has resolved in the interim from prior study. No acute fracture or other bony abnormality is appreciated. Impression: 1. Knee prosthesis which appears normal in alignment. 2. Nothing acute is seen. Diagnostic code #2 This report was dictated in MDT
--- NOTE | 2020-01-27 16:20 | US ---
Left lower extremity deep venous ultrasound: Duplex and color Doppler evaluation was obtained of the left common femoral, superficial femoral, popliteal, posterior tibial and peroneal veins. Comparison: No prior venous imaging is available. Findings: Normal compression and augmentation is seen. Impression: 1. No evidence of deep venous thrombosis within the left lower extremity. Diagnostic code #1 This report was dictated in MDT
--- NOTE | 2020-01-27 16:25 | EDM.PDOC ---
ED HPI GENERAL MEDICAL PROBLEM - General Chief Complaint: Lower Extremity Injury/Pain Stated Complaint: LEG PAIN POST SURGERY Time Seen by Provider: 01/27/20 13:06 Source of Information: Reports: Patient History Limitations: Reports: No Limitations - History of Present Illness INITIAL COMMENTS - FREE TEXT/NARRATIVE: HISTORY AND PHYSICAL: History of present illness: Patient is a 59-year-old female who presents to the ED today with concern of left leg pain and swelling following a total knee replacement that occurred approximately 1 week ago. Patient states that she had a total knee replacement by Dr. Bailey in orthopedics. Patient states she did have some pain and swelling following the procedure which is worsened over the past several days. Patient states she has noticed some bruising of her thigh and her calf and swelling around her ankle. Patient denies any new trauma or injury. Patient states that she also has a small amount of fluid that comes out of the bottom of her incision that she changes the dressings for still. Patient denies noticing any pus or redness of her suture site. Patient states she has an appointment tomorrow morning with orthopedics for follow-up. Patient denies fever, chills, chest pain, shortness of breath, or cough. Denies headache, neck stiff ness, change in vision, syncope, or near syncope. Denies nausea, vomiting, abdominal pain, diarrhea, constipation, or dysuria. Has not noted any blood in urine or stool. Patient has been eating and drinking appropriately. Review of systems: As per history of present illness and below otherwise all systems reviewed and negative. Past medical history: As per history of present illness and as reviewed below otherwise noncontributory. Surgical history: As per history of present illness and as reviewed below otherwise noncontributory. Social history: See social history for further information Family history: As per history of present illness and as reviewed below otherwise noncontributory. Physical exam: General: Patient is alert, oriented, and in no acute distress. Patient laying comfortably on exam table. HEENT: Atraumatic, normocephalic, pupils equal and reactive bilaterally, negative for conjunctival pallor or scleral icterus, mucous membranes moist, TMs normal bilaterally, throat clear, neck supple, nontender, trachea midline. No drooling or trismus noted. No meningeal signs. No hot potato voice noted. Lungs: Clear to auscultation, breath sounds equal bilaterally, chest nontender. Heart: S1S2, regular rate and rhythm without overt murmur Abdomen: Soft, nondistended, nontender. Negative for masses or hepatosplenomegaly. Negative for costovertebral tenderness. Pelvis: Stable nontender. Genitourinary: Deferred. Rectal: Deferred. Skin: Intact, warm, dry. No lesions or rashes noted. Extremities: Incision of left knee consistent with recent surgical history. No erythema noted of the incision site. Appears to be healing well. There is a small amount of serosanguineous fluid on patient's bandage but no drainage noted on exam. There is some scattered bruising of patient's left lower extremity of her thigh and her lower calf. Patient also has some mild swelling of her left ankle without erythema or warmth. DP/PT intact of LLE with cap refill < 2 seconds. Otherwise, Atraumatic, negative for cords or calf pain. Neurovascular unremarkable. Neuro: Awake, alert, oriented. Cranial nerves II through XII unremarkable. Cerebellum unremarkable. Motor and sensory unremarkable throughout. Exam nonfocal. Notes: Discussed importance for keeping a follow-up tomorrow morning with the orthopedic clinic. Voices understanding and is agreeable to plan of care. Denies any further questions or concerns at this time. Diagnostics: CBC, CMP, Knee XR, LEUS Venous Therapeutics: Conrad Prescription: None Impression: Post operational leg pain / edema Plan: 1. You can alternate ibuprofen and Tylenol as directed for pain and discomfort. Follow-up with the orthopedic provider as scheduled tomorrow and as discussed. Return to the ED as needed and as discussed. Definitive disposition and diagnosis as appropriate pending reevaluation and review of above. left knee Pain Score (Numeric/FACES): 4 - Related Data Allergies Allergy/AdvReac Type Severity Reaction Status Date / Time milk Allergy Swollen Verified 01/27/20 13:45 Tongue pork derived (porcine) Allergy Swollen Verified 01/27/20 13:45 Tongue tree and shrub pollen Allergy Airway Verified 01/27/20 13:45 Tightness weed pollen Allergy Airway Verified 01/27/20 13:45 Tightness Home Meds: Home Meds Aspirin/Acetaminophen/Caffeine [Excedrin Migraine Caplet] 1 tab PO ASDIRECTED PRN 01/17/20 [History] diphenhydrAMINE [Benadryl] 25 mg PO ASDIRECTED PRN 01/17/20 [History] Acetaminophen [Tylenol] 650 mg PO Q6H PRN #100 tablet 01/22/20 [Rx] Aspirin 325 mg PO DAILY tablet 01/22/20 [Rx] Ibuprofen [Motrin] 800 mg PO Q6H PRN #100 tablet 01/22/20 [Rx] Past Medical History HEENT History: Reports: None Cardiovascular History: Reports: None Respiratory History: Reports: Asthma Gastrointestinal History: Reports: None [employer] History: Reports: Musculoskeletal History: Reports: None Neurological History: Reports: Migraines Psychiatric History: Reports: Depression Endocrine/Metabolic History: Reports: None Hematologic History: Reports: None Immunologic History: Reports: None Oncologic (Cancer) History: Reports: None Other Oncologic History: frozen off face, chest and legs Dermatologic History: Reports: None - Infectious Disease History Infectious Disease History: Reports: Chicken Pox - Past Surgical History Head Surgeries/Procedures: Reports: None GI Surgical History: Reports: Appendectomy, Cholecystectomy, Other (See Below) Female Surgical History: Reports: Hysterectomy Musculoskeletal Surgical History: Reports: Knee Replacement, Other (See Below) Other Musculoskeletal Surgeries/Procedures:: surgery to right foot Social & Family History - Family History Family Medical History: Noncontributory - Tobacco Use Smoking Status *Q: Never Smoker - Caffeine Use Caffeine Use: Reports: Soda - Recreational Drug Use Recreational Drug Use: No Review of Systems - Review of Systems Review Of Systems: Comprehensive ROS is negative, except as noted in HPI. ED EXAM, GENERAL - Physical Exam Exam: See Below (see dictation) Course - Vital Signs Last Recorded V/S: Last Vital Signs Temp 96.7 F L 01/27/20 13:48 Pulse 78 01/27/20 13:48 Resp 20 01/27/20 13:48 BP 176/98 H 01/27/20 13:48 Pulse Ox 97 01/27/20 13:48 - Orders/Labs/Meds Orders: Active Orders 24 hr Category Date Time Status Venous Doppler Lwr Ext Lt [US] Stat Exams 01/27/20 14:01 Taken Labs: Laboratory Tests 01/27/20 01/27/20 Range/Units 14:23 14:23 WBC 8.29 (4.0-11.0) K/uL RBC 3.94 L (4.30-5.90) M/uL Hgb 11.2 L (12.0-16.0) g/dL Hct 34.6 L (36.0-46.0) % MCV 87.8 (80.0-98.0) fL MCH 28.4 (27.0-32.0) pg MCHC 32.4 (31.0-37.0) g/dL RDW Std Deviation 44.0 (28.0-62.0) fl RDW Coeff of Teja 14 (11.0-15.0) % Plt Count 338 (150-400) K/uL MPV 9.10 (7.40-12.00) fL Neut % (Auto) 68.2 (48.0-80.0) % Lymph % (Auto) 21.1 (16.0-40.0) % Coleman % (Auto) 8.7 (0.0-15.0) % Eos % (Auto) 1.8 (0.0-7.0) % Baso % (Auto) 0.2 (0.0-1.5) % Neut # (Auto) 5.7 (1.4-5.7) K/uL Lymph # (Auto) 1.8 (0.6-2.4) K/uL Coleman # (Auto) 0.7 (0.0-0.8) K/uL Eos # (Auto) 0.2 (0.0-0.7) K/uL Baso # (Auto) 0.0 (0.0-0.1) K/uL Nucleated RBC % 0.0 /100WBC Nucleated RBCs # 0 K/uL Sodium 139 (136-145) mmol/L Potassium 4.2 (3.5-5.1) mmol/L Chloride 103 (98-107) mmol/L Carbon Dioxide 27.8 (21.0-32.0) mmol/L BUN 12 (7.0-18.0) mg/dL Creatinine 0.7 (0.6-1.0) mg/dL Est Cr Clr Drug Dosing 89.45 mL/min Estimated GFR (MDRD) > 60.0 ml/min Glucose 101 (74-106) mg/dL Calcium 8.9 (8.5-10.1) mg/dL Total Bilirubin 0.3 (0.2-1.0) mg/dL AST 19 (15-37) IU/L ALT 27 (14-63) IU/L Alkaline Phosphatase 74 (46-116) U/L Total Protein 7.3 (6.4-8.2) g/dL Albumin 3.5 (3.4-5.0) g/dL Globulin 3.8 (2.6-4.0) g/dL Albumin/Globulin Ratio 0.9 (0.9-1.6) Meds: Medications Discontinued Medications Generic Name Dose Route Start Last Admin Trade Name Freq PRN Reason Stop Dose Admin Hydrocodone Bitart/Acetaminophen 1 tab 01/27/20 14:02 01/27/20 14:40 Conrad 325-7.5 Mg PO 01/27/20 14:03 1 tab NOW STA Administration Methylprednisolone Sodium Succinate 125 mg 01/27/20 13:08 01/27/20 13:46 Solu-Medrol IVPUSH 01/27/20 13:09 Not Given ONETIME ONE Sodium Chloride 10 ml 01/27/20 13:06 Saline Flush FLUSH ASDIRECTED PRN Keep Vein Open Sodium Chloride 2.5 ml 01/27/20 13:06 Saline Flush FLUSH ASDIRECTED PRN Keep Vein Open Sodium Chloride 10 ml 01/27/20 13:06 Normal Saline IV ASDIRECTED PRN IV Use Valacyclovir HCl 1,000 mg 01/27/20 13:08 01/27/20 13:46 Valtrex PO 01/27/20 13:09 Not Given ONETIME ONE Departure - Departure Time of Disposition: 16:25 Disposition: Home, Self-Care 01 Clinical Impression: Post-op pain - Discharge Information Referrals: Yazmin Arias DO [Primary Care Provider] - Additional Instructions: The following information is given to patients seen in the emergency department who are being discharged to home. This information is to outline your options for follow-up care. We provide all patients seen in our emergency department with a follow-up referral. The need for follow-up, as well as the timing and circumstances, are variable depending upon the specifics of your emergency department visit. If you don't have a primary care physician on staff, we will provide you with a referral. We always advise you to contact your personal physician following an emergency department visit to inform them of the circumstance of the visit and for follow-up with them and/or the need for any referrals to a consulting specialist. The emergency department will also refer you to a specialist when appropriate. This referral assures that you have the opportunity for follow-up care with a specialist. All of these measure are taken in an effort to provide you with optimal care, which includes your follow-up. Under all circumstances we always encourage you to contact your private physician who remains a resource for coordinating your care. When calling for follow-up care, please make the office aware that this follow-up is from your recent emergency room visit. If for any reason you are refused follow-up, please contact the [facility] Emergency Department at and asked to speak to the emergency department charge nurse. [facility] [address] [place] [id number] [address] [facility] - [facility] Professional Building [address] [place] [address], [address] [place] [address] 1. You can alternate ibuprofen and Tylenol as directed for pain and discomfort. Follow-up with the orthopedic provider as scheduled tomorrow and as discussed. Return to the ED as needed and as discussed. Sepsis Event Note (ED) - Evaluation Sepsis Screening Result: No Definite Risk - Focused Exam Vital Signs: Vital Signs Temp Pulse Resp BP Pulse Ox 01/27/20 13:48 96.7 F L 78 20 176/98 H 97 - My Orders Last 24 Hours: My Active Orders 01/27/20 14:01 Venous Doppler Lwr Ext Lt [US] Stat - Assessment/Plan Last 24 Hours: My Active Orders 01/27/20 14:01 Venous Doppler Lwr Ext Lt [US] Stat
== END 2020-01-27 16:36 | disposition home or self-care (01) ==
LOC: MW.ED 13:02
DX: G89.18 Other acute postprocedural pain (principal); M79.89 Other specified soft tissue disorders; Z91.011 Allergy to milk products; Z91.09 Other allergy status, other than to drugs and biological substances; Z91.018 Allergy to other foods; Z90.49 Acquired absence of other specified parts of digestive tract; Z90.710 Acquired absence of both cervix and uterus
CPT/HCPCS: 36415; 73562; 80053; 85025; 93971; 99284; A9270; 99283

== ENCOUNTER 2020-12-15 08:08 | Day surgery (SDC) | payer BC, OTHER ==
[~2020-12-15 08:08] MED LIST changes: -Famotidine 20 MG/2 ML SDV IVPUSH SCH; +Lactated Ringers 1,000 ML IV SCH; +Propofol 200 MG/20 ML SDV ONE; -Ropivacaine 49.25 ML, Ketorolac 30 MG, EPINEPHrine 0.5 MG, cloNIDine 80 MCG in Sodium C... INJECT SCH; -Scopolamine 1.5 MG Transdermal Patch TRDERM SCH; +cefOXitin 2 GM in Premix Bag 1 BAG IV ONE
--- NOTE | 2020-12-15 09:31 | PCM.PREANE ---
Preanesthetic Assessment - Anesthesia/Transfusion/Family Hx Anesthesia History: Prior Anesthesia Without Reaction Other Type of Anesthesia Reaction Comment: Denies any known problem in past Transfusion History: No Prior Transfusion(s) - Review of Systems General: No Symptoms Pulmonary: No Symptoms Cardiovascular: No Symptoms Gastrointestinal: No Symptoms Neurological: No Symptoms Other: Reports: None - Physical Assessment NPO Status Date: 12/14/20 NPO Status Time: 22:00 Vital Signs: Last Vital Signs Temp 36.4 C 12/15/20 08:25 Pulse 79 12/15/20 08:25 Resp 16 12/15/20 08:25 BP 140/89 12/15/20 08:25 Pulse Ox 98 12/15/20 08:25 Height: 5 ft 8 in Weight: 90.718 kg ASA Class: 2 Mental Status: Alert & Oriented x3 Airway Class: Mallampati = 3 Dentition: Reports: Normal Dentition ROM/Head Extension: Full Lungs: Clear to Auscultation, Normal Respiratory Effort Cardiovascular: Regular Rate, Regular Rhythm - Allergies Allergies/Adverse Reactions: Allergies Allergy/AdvReac Type Severity Reaction Status Date / Time milk Allergy Swollen Verified 12/09/20 09:48 Tongue pork derived (porcine) Allergy Swollen Verified 12/09/20 09:49 Tongue tree and shrub pollen Allergy Airway Verified 12/09/20 09:48 Tightness weed pollen Allergy Airway Verified 12/09/20 09:48 Tightness - Acknowledgements Anesthesia Type Planned: General Anesthesia Pt an Appropriate Candidate for the Planned Anesthesia: Yes Alternatives and Risks of Anesthesia Discussed w Pt/Guardian: Yes Pt/Guardian Understands and Agrees with Anesthesia Plan: Yes PreAnesthesia Questionnaire HEENT History: Reports: None Cardiovascular History: Reports: None Respiratory History: Reports: None Gastrointestinal History: Reports: None Genitourinary History: Reports: None [employer] O[employer]ATOR History: Reports: Musculoskeletal History: Reports: Osteoarthritis Neurological History: Reports: Migraines Psychiatric History: Reports: Depression Endocrine/Metabolic History: Reports: Obesity/BMI 30+ Hematologic History: Reports: None Immunologic History: Reports: None Oncologic (Cancer) History: Reports: Basal Cell Carcinoma Other Oncologic History: frozen off face, chest and legs Dermatologic History: Reports: None - Infectious Disease History Infectious Disease History: Reports: Chicken Pox - Past Surgical History Head Surgeries/Procedures: Reports: None HEENT Surgical History: Reports: None Cardiovascular Surgical History: Reports: None Respiratory Surgical History: Reports: None GI Surgical History: Reports: Appendectomy, Cholecystectomy, Colonoscopy, Other (See Below) Other GI Surgeries/Procedures: Abdominal surgery for "tumors in my abdomen", pt states tumor is benign Female Surgical History: Reports: Hysterectomy Endocrine Surgical History: Reports: None Neurological Surgical History: Reports: None Musculoskeletal Surgical History: Reports: Arthroscopic Knee, Knee Replacement, Other (See Below) Other Musculoskeletal Surgeries/Procedures:: surgery to right foot-big toe, left TKA Dermatological Surgical History: Reports: Skin Biopsy - SUBSTANCE USE Tobacco Use Status *Q: Never Tobacco User - HOME MEDS Home Medications: Home Meds Ibuprofen 2 tab PO ASDIRECTED PRN 12/09/20 [History] diphenhydrAMINE [Benadryl] 1 dose PO ASDIRECTED PRN 12/09/20 [History] - CURRENT (IN HOUSE) MEDS Current Meds: Current Medications Lactated Ringer's (Ringers, Lactated) 1,000 mls @ 125 mls/hr IV ASDIRECTED [facility] Last Admin: 12/15/20 08:31 Dose: 125 mls/hr Documented by: Lactated Ringer's (Ringers, Lactated) 1,000 mls @ 125 mls/hr IV ASDIRECTED ALONSO Discontinued Medications Cefoxitin Sodium 2 gm/ Premix 50 mls @ 100 mls/hr IV ONETIME ONE Stop: 12/15/20 07:59 Lidocaine HCl (Lidocaine 1% 5 Ml Sdv) Confirm Administered Dose 5 ml .ROUTE .STK-MED ONE Stop: 12/15/20 07:05 Propofol (Propofol 200 Mg/20 Ml Sdv) Confirm Administered Dose 400 mg .ROUTE .STK-MED ONE Stop: 12/15/20 07:06
[2020-12-15] MEDS ORDERED: cefOXitin 1 GM Vial ONE (10:10)
[2020-12-15] MEDS ORDERED: Lactated Ringers 1,000 ML IV SCH (10:45)
--- NOTE | 2020-12-15 10:46 | PCM48HPAN ---
Post Anesthesia Note - EVALUATION WITHIN 48HRS OF ANESTHETIC Vital Signs in Normal Range: Yes Patient Participated in Evaluation: Yes Respiratory Function Stable: Yes Airway Patent: Yes Cardiovascular Function Stable: Yes Hydration Status Stable: Yes Pain Control Satisfactory: Yes Nausea and Vomiting Control Satisfactory: Yes Mental Status Recovered: Yes Vital Signs: Last Vital Signs Temp 36.4 C 12/15/20 08:25 Pulse 61 12/15/20 10:45 Resp 15 12/15/20 10:45 BP 128/76 12/15/20 10:45 Pulse Ox 95 12/15/20 10:45
--- NOTE | 2020-12-15 10:46 | PCM.OPNOTE ---
- General Post-Op/Procedure Note Date of Surgery/Procedure: 12/15/20 Operative Procedure(s): Colonoscopy Pre Op Diagnosis: Change in bowel habits. Family history of colon cancer. Post-Op Diagnosis: Sigmoid diverticulosis. Anesthesia Technique: MAC (ASA II) Primary Surgeon: Rosendo Alston Condition: Good Free Text/Narrative:: DICTATION [id number] CPT CODE 37203
--- NOTE | 2020-12-15 10:46 | PCM.POSTAN ---
POST ANESTHESIA ASSESSMENT - MENTAL STATUS Mental Status: Alert, Oriented - VITAL SIGNS Vital Signs: Last Vital Signs Temp 36.4 C 12/15/20 08:25 Pulse 61 12/15/20 10:45 Resp 15 12/15/20 10:45 BP 128/76 12/15/20 10:45 Pulse Ox 95 12/15/20 10:45 - RESPIRATORY Respiratory Status: Respiratory Rate WNL, Airway Patent, O2 Saturation Stable - CARDIOVASCULAR CV Status: Pulse Rate WNL, Blood Pressure Stable - GASTROINTESTINAL GI Status: No Symptoms - POST OP HYDRATION Hydration Status: Adequate & Stable
[2020-12-15 11:27] VITALS: BP 124/70; PULSE 62
--- NOTE | 2020-12-15 15:05 | OR ---
SURGEON: Rosenod Alston M.D. DATE OF PROCEDURE: 12/15/2020 OPERATION PERFORMED: Colonoscopy. PRIMARY SURGEON: Rosendo Alston M.D. ANESTHESIA: MAC. ASA CLASSIFICATION: II. PREOPERATIVE DIAGNOSES: 1. Change in bowel habits. 2. Family history of colon cancer. POSTOPERATIVE DIAGNOSIS: Mild sigmoid diverticulosis. DESCRIPTION OF PROCEDURE: The patient was taken to the endoscopy room and positioned on the endoscopy table in the left lateral decubitus position. Time-out was called for appropriate identification of the patient and procedure. Monitored anesthesia care was provided. The colonoscope was inserted into the rectum and advanced with minimal difficulty to the cecum. The cecum was identified by internal landmarks and external pressure. The colonoscope was retroflexed to visualize the ascending colon from below and then straightened and slowly withdrawn. The cecum, ascending colon, hepatic flexure, transverse colon, splenic flexure, and descending colon showed no tumors, polyps, diverticula, or angiodysplastic changes. The sigmoid colon demonstrated a few small scattered diverticula. No stricture, spasm, or bleeding was noted. No polyps were encountered in the sigmoid colon. The colonoscope was then withdrawn to the rectum and retroflexed to visualize the anal orifice from above. No tumors or polyps are seen. Some mild chronic hemorrhoidal changes were noted, but no acute hemorrhoids or bleeding. The colonoscope was then straightened, the rectum aspirated, and the colonoscope removed. The patient tolerated the procedure well and was taken to recovery room in stable condition. DIANNE / LOLIS /[id number]
== END 2020-12-15 11:21 | disposition home or self-care (01) ==
LOC: MW.SDS 08:08
PROVIDERS: ATTEND Surgery
DX: K57.30 Diverticulosis of large intestine without perforation or abscess without bleeding (principal); K64.9 Unspecified hemorrhoids; G43.909 Migraine, unspecified, not intractable, without status migrainosus; E66.9 Obesity, unspecified; Z91.018 Allergy to other foods; Z79.899 Other long term (current) drug therapy; Z91.011 Allergy to milk products; Z98.890 Other specified postprocedural states; Z90.49 Acquired absence of other specified parts of digestive tract; Z80.0 Family history of malignant neoplasm of digestive organs; Z68.30 Body mass index [BMI] 30.0-30.9, adult
CPT/HCPCS: 45378; J0694; J2704; J7120; 00811

== ENCOUNTER 2021-11-05 16:05 | Emergency (ER) | payer OTHER, BC ==
[2021-11-05 18:55] VITALS: PULSE 81
[2021-11-05] MEDS ORDERED: Ketorolac 30 MG/ML SDV IM STA (19:01)
[2021-11-06 01:36] VITALS: BP 169/87
== END 2021-11-05 21:09 | disposition home or self-care (01) ==
LOC: MW.ED 16:05
DX: S93.401A Sprain of unspecified ligament of right ankle, initial encounter (principal); S93.402A Sprain of unspecified ligament of left ankle, initial encounter; E66.9 Obesity, unspecified; Z68.28 Body mass index [BMI] 28.0-28.9, adult; Z91.011 Allergy to milk products; Z91.048 Other nonmedicinal substance allergy status; Z91.09 Other allergy status, other than to drugs and biological substances; X50.1XXA Overexertion from prolonged static or awkward postures, initial encounter
CPT/HCPCS: 73610; 96372; 99283; J1885

== ENCOUNTER 2022-07-16 14:55 | Emergency (ER) | payer BC ==
[2022-07-16] MEDS ORDERED: Sodium Chloride 0.9% 1,000 ML IV ONE (15:05)
[2022-07-16] MEDS ORDERED: Metoclopramide 10 MG/2 ML SDV IVPUSH ONE (15:07)
[2022-07-16] MEDS ORDERED: Morphine 4 MG/ML Syringe IVPUSH ONE (15:07)
[2022-07-16] MEDS ORDERED: diphenhydrAMINE 50 MG/ML SDV IVPUSH ONE (15:07)
[2022-07-16 15:54] LABS: BLOOD UREA NITROGEN,BUN 15 mg/dL (7.0-18.0); CHLORIDE,CL 101 mmol/L (98-107); ESTIMATED GFR 85 mL/min (>60); GLUCOSE RANDOM 107 mg/dL (74-106); POTASSIUM,K 3.2 mmol/L (3.5-5.1); SODIUM,NA 136 mmol/L (136-145)
[2022-07-16] MEDS ORDERED: Potassium Chloride 20 MEQ Tab.ER PO ONE (15:59)
[2022-07-16 16:12] LABS: CORONAVIRUS COVID-19 NAA POSITIVE (NEGATIVE); INFLUENZA A NAA NEGATIVE (NEGATIVE); INFLUENZA B NAA NEGATIVE (NEGATIVE)
[2022-07-16] MEDS ORDERED: Iopamidol 755 MG/ML 500 ML Multipack Bottle IVPUSH ONE ×2 (16:19→17:03)
[2022-07-16] MEDS ORDERED: Acetaminophen/oxyCODONE 325-5 MG Tab PO ONE (17:10)
[2022-07-16 17:18] VITALS: BP 139/69; PULSE 87
== END 2022-07-16 17:17 | disposition home or self-care (01) ==
LOC: MW.ED 14:55
DX: U07.1 COVID-19 (principal); E66.9 Obesity, unspecified; Z68.26 Body mass index [BMI] 26.0-26.9, adult; Z91.011 Allergy to milk products; Z91.018 Allergy to other foods
CPT/HCPCS: 0240U; 36415; 70450; 70496; 70498; 71045; 80053; 83605; 83735; 84484; 85025; 85610; 85730; 86140; 87040; 93005; 96361; 96374; 96375; 99285; A9270; J1200; J2270; J2765; J7030; Q9967; 93010; 99284

== ENCOUNTER 2024-02-10 11:19 | Day surgery (SDC) | payer BC ==
[~2024-02-10 11:19] MED LIST changes: -Lactated Ringers 1,000 ML IV SCH; -Propofol 200 MG/20 ML SDV ONE; +ceFAZolin 2 GM in Sodium Chloride 0.9% 50 ML IV ONE; -cefOXitin 2 GM in Premix Bag 1 BAG IV ONE
[2024-02-10] MEDS: Lactated Ringers 1,000 ML IV SCH (12:09)
[2024-02-10] MEDS ORDERED: dexmedeTOMIDine HCl 200 MCG/2 ML SDV ONE (12:21)
[2024-02-10] MEDS ORDERED: fentaNYL 100 MCG/2 ML SDV ONE (12:22)
[2024-02-10] MEDS ORDERED: Propofol 200 MG/20 ML SDV ONE (12:22)
[2024-02-10] MEDS ORDERED: Bupivacaine 0.5%/EPINEPHrine 1:200,000 30 ML SDV ONE (12:44)
[2024-02-10] MEDS ORDERED: Dexamethasone 4 MG/ML 5 ML MDV ONE (13:02)
[2024-02-10] MEDS ORDERED: Ondansetron 4 MG/2 ML SDV ONE (13:02)
[2024-02-10] MEDS ORDERED: ceFAZolin 2 GM Vial ONE (13:04)
[2024-02-10] MEDS ORDERED: Ketamine HCL/NACL, ISO-OSM 50 MG/5 ML Syringe ONE (13:04)
[2024-02-10] MEDS ORDERED: Ketorolac 30 MG/ML SDV ONE (13:35)
[2024-02-10] MEDS ORDERED: Naloxone 0.4 MG/ML SDV IVPUSH PRN (13:38)
[2024-02-10] MEDS ORDERED: fentaNYL 50 MCG/ML SDV IVPUSH PRN (13:38)
[2024-02-10] MEDS ORDERED: Metoclopramide 10 MG/2 ML SDV IVPUSH PRN (13:38)
[2024-02-10] MEDS ORDERED: Morphine 2 MG/ML SYRINGE IVPUSH PRN (13:38)
[2024-02-10] MEDS ORDERED: Albuterol 0.083% 2.5 MG/3 ML Neb Soln NEB PRN (13:38)
[2024-02-10] MEDS ORDERED: Ondansetron 4 MG/2 ML SDV IVPUSH PRN (13:38)
[2024-02-10] MEDS ORDERED: Phenylephrine HCl In 0.9% NaCl 1 MG/10 ML Syringe IVPUSH PRN (13:38)
[2024-02-10] MEDS ORDERED: HYDROmorphone 1 MG/ML Syringe IVPUSH PRN (13:38)
[2024-02-10 14:15] VITALS: BP 139/87
[2024-02-10 15:22] VITALS: PULSE 66
== END 2024-02-10 15:10 | disposition home or self-care (01) ==
LOC: MW.SDS 11:19
PROVIDERS: ATTEND Orthopaedic Surgery
DX: S83.241A Other tear of medial meniscus, current injury, right knee, initial encounter (principal); Z91.011 Allergy to milk products; Z91.014 Allergy to mammalian meats
CPT/HCPCS: 29881; J0131; J0690; J1100; J1885; J2704; J3010; J7120; J2405; J3490

== ENCOUNTER 2025-01-05 08:19 | Emergency (ER) | payer BC ==
[2025-01-05] MEDS: methylPREDNISolone Sodium Succinate 125 MG/2 ML SDV IVPUSH ONE (09:10)
[2025-01-05 12:39] VITALS: BP 160/99; PULSE 89
== END 2025-01-05 12:37 | disposition home or self-care (01) ==
LOC: MW.ED 08:19
DX: R22.1 Localized swelling, mass and lump, neck (principal); T78.3XXA Angioneurotic edema, initial encounter
CPT/HCPCS: 96374; 96375; 99284; A9270; J2919; 99283